=== PATIENT | male | born 1980 | race African-American/Black ===

== ENCOUNTER 2016-07-25 21:08 | Emergency (ER) | payer OTHER ==
[2016-07-25 21:13] VITALS: TEMP 98.1; BMI 25.8
[2016-07-25] MEDS ORDERED: ASPIRIN 81 MG CHEWABLE TABLETS PO ONE (22:15)
--- NOTE | 2016-07-25 22:16 | PDOC ---
History of Present Illness - General Chief Complaint: Chest Pain Stated Complaint: CHEST PAIN Time Seen by Provider: 07/25/16 21:40 History Source: Patient - History of Present Illness Initial Comments: 07/25/16 23:34 36 year old male with left sided chest pain x 2 days patient reports pain to be intermittent.. denies nausea, fever, cough, heavy lifting, SOB. no recent travel. Past History - Past Medical History Allergies/Adverse Reactions: Allergies Allergy/AdvReac Type Severity Reaction Status Date / Time No Known Drug Allergies Allergy Verified 07/25/16 22:54 nut - unspecified Allergy Verified 07/25/16 21:10 shellfish derived Allergy Verified 07/25/16 21:10 Home Medications: Ambulatory Orders Albuterol Sulfate Inhaler - [Ventolin Hfa Inhaler -] 1 puff IH DAILY 07/25/16 Asthma: Yes - Psycho/Social/Smoking Cessation Hx Suicidal Ideation: No Smoking History: Never smoked Review of Systems - Review of Systems Able to Perform ROS?: Yes Is the patient limited [place]ian proficient: No Constitutional: No: Symptoms Reported, See HPI, Chills, Diaphoresis, Fever, Loss of Appetite, Malaise, Night Sweats, Weakness, Weight Stable, Unintentional Wgt. Loss, Unexplained wgt Loss, Other HEENTM: No: Symptoms Reported, See HPI, Eye Pain, Blurred Vision, Tearing, Recent change in vision, Double Vision, Cataracts, Ear Pain, Ocular Prothesis, Ear Discharge, Nose Pain, Nose Congestion, Tinnitus, Nose Bleeding, Hearing Loss , Throat Pain, Throat Swelling, Mouth Pain, Dental Problems, Difficulty Swallowing, Mouth Swelling, Other Respiratory: No: Symptoms reported, See HPI, Cough, Orthopnea, Shortness of Breath, SOB with Exertion, SOB at Rest, Stridor, Wheezing, Productive cough, Hemoptysis, Other Cardiac (ROS): Yes: Chest Pain ABD/GI: No: Symptoms Reported, See HPI, Abdominal Distended, Abd. Pain w/ defecation, Blood Streaked Bowels, Constipated, Diarrhea, Difficulty Swallowing , Nausea, Poor Appetite, Poor Fluid Intake, Rectal Bleeding, Vomiting, Indigestion, Abdominal cramping, Tarry Stools, Other : No: Symptoms Reported, See HPI, Burning, Dysuria, Discharge, Frequency, Flank Pain, Hematuria, Incontinence, Pain, Urgency, Testicular Mass, Testicular Swelling, Lesions, Testicular Pain, Other Musculoskeletal: No: Symptoms Reported, See HPI, Back Pain, Gout, Joint Pain, Joint Swelling, Muscle Pain, Muscle Weakness, Neck Pain, Joint Stiffness, Other *Physical Exam - Vital Signs Last Vital Signs Temp Pulse Resp BP Pulse Ox 98.1 F 57 L 20 135/92 100 07/25/16 21:11 07/26/16 00:03 07/26/16 00:03 07/26/16 00:03 07/26/16 00:03 - Physical Exam General Appearance: Yes: Appropriately Dressed Respiratory/Chest: positive: Lungs Clear, Normal Breath Sounds. negative: Chest Tender Cardiovascular: positive: Regular Rhythm, Regular Rate Gastrointestinal/Abdominal: positive: Normal Bowel Sounds, Soft Extremity: positive: Normal Capillary Refill, Normal Inspection, Normal Range of Motion Integumentary: positive: Normal Color, Dry, Warm Neurologic: positive: Fully Oriented, Alert, Normal Mood/Affect (no lower extremity edema) Heart Score/ECG Review - History History: Slightly suspicious - Electrocardiogram EKG: Normal - Age Age: </= 45 - Risk Factors Risk Factors Heart Score: No Hx Hypercholesterolemia, No Hx Hypertension, No Hx Diabetes, No Smoking History, No Positive family hx of cardiac disease, No Hx Obesity Based on the list above the patient has:: No risk factors known - Troponin Troponin: </= normal limit - Score Heart Score - Total: 0 - ECG Intrepretation Rhythm: Regular Rhythm Comment:: 08/24/16 22:00 NSR ED Treatment Course - LABORATORY CBC & Chemistry Diagram: 07/25/16 22:30 07/25/16 22:30 - ADDITIONAL ORDERS Additional order review: 07/25/16 22:30 RBC 5.44 MCV 87.6 MCHC 33.3 RDW 12.9 MPV 8.7 Neutrophils % 42.9 Lymphocytes % 42.6 H Monocytes % 8.3 Eosinophils % 5.6 H Basophils % 0.6 - RADIOLOGY Radiology Studies Ordered: Category Date Time Status CHEST PA & LAT [RAD] Stat Radiology 07/25/16 22:15 Completed Chest X-Ray Result: No Infiltrates - Medications Given in the ED: ED Medications Discontinued Medications Generic Name Dose Route Start Last Admin Trade Name Freq PRN Reason Stop Dose Admin Aspirin 162 mg 07/25/16 22:15 07/25/16 22:30 Asa - PO 07/25/16 22:16 162 mg ONCE ONE Administration Progress Note - Progress Note Progress Note: A: Chest pain P: cbc cardiac enzymes cmp ekg chest xray heart score 0. will discharge to have close pmd follow up. *DC/Admit/Observation/Transfer Diagnosis at time of Disposition: Chest pain Qualifiers: Chest pain type: unspecified Qualified Code(s): R07.9 - Chest pain, unspecified - Discharge Dispostion Disposition: HOME - Patient Instructions Printed Discharge Instructions: DI for Atypical Chest Pain Additional Instructions: follow up with your doctor as soon as possible. your blood pressure need to be rechecked with your doctor. avoid salt intake return to the ER if you have shortness of breath, worsening chest pain
[2016-07-25] MEDS ORDERED: ASPIRIN 81 MG CHEWABLE TABLETS ONE (22:17)
[2016-07-25 22:46] LABS: BASOPHIL 0.6 % (0-2.0); EOSINOPHIL 5.6 % (0-4.5); MCH 29.2 pg (25.7-33.7); MCHC 33.3 g/dl (32.0-35.9); MEAN CELL VOLUME 87.6 fl (80-96); MEAN PLT VOLUME 8.7 fl (7.5-11.1); NEUTROPHILS 42.9 % (42.8-82.8); PLATELET COUNT 193 K/MM3 (134-434); RDW 12.9 % (11.9-15.9); WHITE BLOOD COUNT 6.3 K/mm3 (4.0-10.0)
[2016-07-25 23:08] LABS: ANION GAP 8 (8-16); BILIRUBIN,TOTAL 0.5 mg/dL (0.2-1.0); CALCIUM 8.6 mg/dL (8.5-10.1); CO2 27 mmol/L (21-32); COCKROFT - GAULT 124.94; CREATININE 0.9 mg/dL (0.7-1.3); GLUCOSE,RANDOM 79 mg/dL (74-106); MAGNESIUM 2.1 mg/dL (1.8-2.4); SGOT/AST 34 U/L (15-37); SGPT/ALT 47 U/L (12-78); TOT PROT 8.1 g/dl (6.4-8.2)
[2016-07-25 23:11] LABS: ALK PHOS 48 U/L (45-117); TROPONIN I < 0.02 ng/ml (0.00-0.05)
--- NOTE | 2016-07-26 00:01 | PDOC ---
*Physical Exam - Vital Signs Last Vital Signs Temp Pulse Resp BP Pulse Ox 98.1 F 72 18 151/80 99 07/25/16 21:11 07/25/16 21:11 07/25/16 21:11 07/25/16 21:11 07/25/16 21:11 ED Treatment Course - LABORATORY CBC & Chemistry Diagram: 07/25/16 22:30 07/25/16 22:30 - ADDITIONAL ORDERS Additional order review: Laboratory Results 07/25/16 07/25/16 22:30 22:30 Sodium 139 Potassium 4.1 Chloride 104 Carbon Dioxide 27 Anion Gap 8 BUN 13 Creatinine 0.9 Creat Clearance w eGFR > 60 Random Glucose 79 Calcium 8.6 Magnesium 2.1 Total Bilirubin 0.5 AST 34 ALT 47 Alkaline Phosphatase 48 Creatine Kinase 331 H Creatine Kinase Index 0.4 CK-MB (CK-2) 1.211 CK-MB (CK-2) Rel Index Cancelled Troponin I < 0.02 Total Protein 8.1 Albumin 4.0 07/25/16 22:30 RBC 5.44 MCV 87.6 MCHC 33.3 RDW 12.9 MPV 8.7 Neutrophils % 42.9 Lymphocytes % 42.6 H Monocytes % 8.3 Eosinophils % 5.6 H Basophils % 0.6 - Medications Given in the ED: ED Medications Discontinued Medications Generic Name Dose Route Start Last Admin Trade Name Kirstie PRN Reason Stop Dose Admin Aspirin 162 mg 07/25/16 22:15 07/25/16 22:30 Asa - PO 07/25/16 22:16 162 mg ONCE ONE Administration Medical Decision Making - Medical Decision Making 07/26/16 00:01 agree with care from NATHEN Landaverde *DC/Admit/Observation/Transfer Diagnosis at time of Disposition: Chest pain Qualifiers: Chest pain type: unspecified Qualified Code(s): R07.9 - Chest pain, unspecified - Discharge Dispostion Disposition: HOME - Referrals - Patient Instructions Printed Discharge Instructions: DI for Atypical Chest Pain Additional Instructions: follow up with your doctor as soon as possible. your blood pressure need to be rechecked with your doctor. avoid salt intake return to the ER if you have shortness of breath, worsening chest pain - Post Discharge Activity
[2016-07-26 00:06] VITALS: BP 135/92; PULSE 57
--- NOTE | 2016-07-26 12:29 | EKG ---
Test Reason : Blood Pressure : / mmHG Vent. Rate : 065 BPM Atrial Rate : 065 BPM P-R Int : 172 ms QRS Dur : 130 ms QT Int : 396 ms P-R-T Axes : 042 053 050 degrees QTc Int : 411 ms NORMAL SINUS RHYTHM RIGHT BUNDLE BRANCH BLOCK ABNORMAL ECG NO PREVIOUS ECGS AVAILABLE Confirmed by CIHCO CALLAWAY MD ([id number] on 07/26/2016 12:29:18 PM Referred By: TRIAGE Confirmed By:CHICO CALLAWAY MD
== END 2016-07-26 00:04 | disposition home or self-care (01) ==
LOC: JER 21:08
DX: R07.9 Chest pain, unspecified (principal); J45.909 Unspecified asthma, uncomplicated
CPT/HCPCS: 36415; 71020-TC; 80053; 82550; 82553; 83735; 84484; 85025; 93005; 93010; 99284-25